=== PATIENT | male | born 1950 | race Caucasian/White ===

== ENCOUNTER 2016-07-25 22:00 | Inpatient (IN) | payer MEDICAID ==
[2016-07-25] MEDS ORDERED: Magnesium Hydroxide (MOM) 30 mL UDC PO PRN (22:53)
[2016-07-25] MEDS ORDERED: Maalox 30 mL Cup PO PRN (22:53)
[2016-07-25] MEDS ORDERED: Hydrocodone/APAP 5mg/325mg Tab PO PRN (22:53)
[2016-07-25 23:05] VITALS: BP 145/77
[2016-07-25] MEDS ORDERED: Dextrose 5% 1,000 ML IV SCH (23:15)
[2016-07-25 23:30] LABS: % BASOPHILS 0.8 % (0.0-2.0); % EOSINOPHILS 1.8 % (0.0-5.0); % LYMPHOCYTES 27.4 % (20.0-50.0); % MONOCYTES 6.3 % (2.0-10.0); % NEUTROPHILS 63.7 % (40.0-80.0); HEMATOCRIT 34.8 % (39.0-49.0); MEAN CELL VOLUME 81.2 fl (80-99); MEAN CORPUSCULAR HEMOGLOBIN 27.9 pg (26.0-30.0); MEAN CORPUSCULAR HGB CONC 34.3 pg (28.0-36.0); MEAN PLATELET VOLUME 8.9 fl; NEUTROPHILE ABSOLUTE 6.1 Th/cmm (1.8-8.0); PLATELET COUNT 205 Th/cmm (150-400); RED BLOOD COUNT 4.29 Mil/cmm (4.30-5.70); WHITE BLOOD COUNT 9.6 Th/cmm (4.8-10.8)
[2016-07-25 23:53] LABS: ALB/GLOB RATIO 0.8 (1.0-1.8); ANION GAP 11.2 (7.0-16.0); BILIRUBIN,TOTAL 0.4 mg/dL (0.3-1.0); BUN/CREATININE RATIO 16.4; CALCIUM SERUM 8.6 mg/dL (8.6-10.3); CARBON DIOXIDE 25.5 mEq/L (21.0-31.0); CREATININE - SERUM 2.2 mg/dL (0.7-1.3); POTASSIUM SERUM 3.7 mEq/L (3.5-5.1)
[2016-07-26] MEDS: Hydrocodone/APAP 10 mg/325 mg Tab PO PRN ×3 (04:14→23:33)
[2016-07-26 06:10] LABS: % BASOPHILS 0.9 % (0.0-2.0); % EOSINOPHILS 2.1 % (0.0-5.0); % MONOCYTES 7.5 % (2.0-10.0); % NEUTROPHILS 57.5 % (40.0-80.0); HEMATOCRIT 35.7 % (39.0-49.0); HEMOGLOBIN 11.8 gm/dL (13.2-17.3); MEAN CELL VOLUME 83.5 fl (80-99); MEAN CORPUSCULAR HEMOGLOBIN 27.6 pg (26.0-30.0); PLATELET COUNT 213 Th/cmm (150-400); RED BLOOD COUNT 4.27 Mil/cmm (4.30-5.70); RED CELL DISTRIBUTION WIDTH 13.1 % (11.5-20.0); WHITE BLOOD COUNT 8.8 Th/cmm (4.8-10.8)
[2016-07-26 06:44] LABS: BUN/CREATININE RATIO 16.7; CALCIUM SERUM 8.6 mg/dL (8.6-10.3); CARBON DIOXIDE 23.7 mEq/L (21.0-31.0); CREATININE - SERUM 2.1 mg/dL (0.7-1.3); MAGNESIUM 1.6 mg/dL (1.9-2.7); PHOSPHOROUS 3.4 mg/dL (2.5-5.0); POTASSIUM SERUM 3.7 mEq/L (3.5-5.1)
--- NOTE | 2016-07-26 11:25 | Diagnostic Imaging Report ---
Renal ultrasound HISTORY: Abnormal renal function tests The right kidney measures 10.3 x 5.3 x 4.0 cm. Mild fullness of the right renal pelvis without lynsey hydronephrosis. No focal parenchymal lesions. The left kidney is normal in size (10.4 x 5.1 x 5.2 cm). No focal lesions. No hydronephrosis. The exam of the urinary bladder exhibits a normal contour. No intraluminal abnormalities are seen. There is excess post void residual (148.4 mL). Mild prostate enlargement (4.6 x 4.2 x 5.0 cm). IMPRESSION: 1. Essentially negative exam of the kidneys 2. Excess post void urine residual within the urinary bladder 3. Mild prostate enlargement
--- NOTE | 2016-07-26 15:29 | History & Physical ---
CHIEF COMPLAINT: Weakness. HISTORY OF PRESENT ILLNESS: The patient is a 66-year-old male who has been transferred from [facility] ER. The patient presented to the [facility] ER with weakness, which has been gradual in nature for 1 week. The patient has a history of frequent falls and vomiting. The patient complains of weakness and vomiting, weakness in his legs. The patient denies fever, chest pain. Positive nausea, vomiting, and diarrhea. The patient was previously seen at [facility] last week. PAST MEDICAL HISTORY: Hypertension, diabetes. SOCIAL HISTORY: No reports smoking, drinking, or drug use. ALLERGIES: No known allergies. MEDICATIONS: See medication reconciliation form. REVIEW OF SYSTEMS: See history of present illness. PHYSICAL EXAMINATION: GENERAL: The patient is awake, alert, nontoxic in appearance. VITAL SIGNS: On admission, temperature 98.1, pulse 95, blood pressure per nursing, respiratory rate 20, O2 saturation 98% on room air. HEENT: Normocephalic, atraumatic. Extraocular movements are intact. Oropharynx is clear. NECK: Supple. No thyromegaly. No lymphadenopathy. RESPIRATORY: Clear. No wheeze or rhonchi. CARDIOVASCULAR: S1, S2. No murmurs or gallops. GASTROINTESTINAL: Soft and nontender, bowel sounds present. GENITOURINARY: No CVA tenderness. No suprapubic tenderness. BACK: No midline tenderness. EXTREMITIES: Equal pulses bilaterally. No c/c/e. SKIN: Negative. PSYCHIATRIC: Negative. NEUROLOGIC: Cranial nerves 2-12 intact. Sensory intact. Neurovascular intact. Lower extremity within normal limits. LABORATORY DATA: On admission as follows: Hematology, WBC 9.6, hemoglobin 12.0, hematocrit per labs, platelet count of 205, no left shift noted. Chemistry: Sodium 132, potassium 3.7, chloride 99, bicarbonate 25, anion gap 11, BUN 36, creatinine 2.2, glucose is 237, calcium 8.6, total bilirubin 0.4, AST 16, ALT 12, alkaline phosphatase 62. Creatinine kinase 152. Troponin is 0.05. Total protein 6.8, albumin 3.1, globulin 3.7. RADIOLOGY: Renal ultrasound from July 26 shows urinary bladder, mild prostate enlargement. X-rays done at [facility], lumbar x-ray shows no changes. Chest x-ray, no acute abnormality. IMPRESSION: 1. Acute kidney injury. 2. Diabetes mellitus. 3. Hypertension. 4. Weakness. 5. Abdominal pain. 6. Nausea and vomiting. 7. Diarrhea. 8. Elevated troponin levels. PLAN: The patient admitted to telemetry unit and seen by Dr. Rolf De Leon. Obtain labs. Consultation as needed. JOB# [id number] MTDD
[2016-07-26] MEDS: INSULIN ASPART SLIDING SCALE 100 UNITS/ML UNIT SUBQ SCH ×2 (16:39→21:12)
[2016-07-26] MEDS: Sodium Chloride 0.9% 1,000 ML IV SCH (17:30)
[2016-07-26] MEDS ORDERED: Mag Sulfate 2gm/50mL Premix 2 GM/50 ML BAG IV ONE (17:45)
--- NOTE | 2016-07-26 19:43 | Consultation ---
INPATIENT NEPHROLOGY CONSULTATION REASON FOR CONSULTATION: Renal insufficiency. 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 On examination, the patient denies complaints, states that he does have blood pressure problems, but no family history or previous history of kidney problems. REVIEW OF SYSTEMS: Denies fevers, chills, nausea, vomiting, chest pain, shortness of breath, abdominal pain. Otherwise, 14-point review is negative except as noted above. PAST MEDICAL HISTORY: Diabetes mellitus, poorly controlled; hypertension. PAST SURGICAL HISTORY: None. FAMILY HISTORY: The patient endorses history of diabetes in the family as well, but no relatives are on dialysis. SOCIAL HISTORY: No smoking, alcohol or drug use currently; however, past history of smoking is endorsed. MEDICATIONS: Include hydrocodone, Tylenol, insulin aspart, magnesium hydroxide. PHYSICAL EXAMINATION: VITAL SIGNS: Temperature 36, blood pressure 140/82, pulse 93, respirations 18. GENERAL APPEARANCE: Well-developed, well-nourished man in no apparent distress, alert and oriented x3. LUNGS: Clear to auscultation bilaterally. CARDIAC: Regular rate, normal rhythm. No murmurs or gallops. EXTREMITIES: Trace edema, 1+ pulses distally. Some venous stasis ulcers seen on lower extremities and shins bilaterally. DIAGNOSTIC DATA: Laboratories were reviewed. The patient appears to have 1+ proteinuria, 1.009 specific gravity, pH 6, no ketones, 3+ glucose, negative urobilinogen, negative bilirubin, negative UA. Hemoglobin, 0-2 wbc's, 0-3 rbc's, no bacteria seen on urinalysis performed at [facility] on 07/25/2016. Additionally, his creatinine at that time was 2.5. Microscopic examination of the sediment was unremarkable. Of note, in January 2016, he had a similar urinalysis done and creatinine at that time was 1.3. Laboratories here as of 07/26/2016 at 4:00 a.m., sodium 132, K 3.7, chloride 101, CO2 23, BUN 35, creatinine 2.1. CBC: White count 8.8, hemoglobin 11.8, platelets 213, calcium 8.6, phos 3.5, mag 1.6, point of care glucose is 401. ASSESSMENT AND RECOMMENDATIONS: 1. Chronic kidney disease secondary to diabetic nephropathy. There may be an underlying component of acute kidney injury secondary to volume depletion. We would recommend continuing IV fluids at this time. The patient's serum creatinine appears to be progressive in nature and we will quantify microalbumin as well as total protein in the urine. Given that the patient has evidence of anemia as well, underlying deposition disease may be another possibility. So far, sediment appears to be unremarkable, do not suspect a primary glomerulonephritis or renal disorder at this time. Renal ultrasound will be obtained to rule out obstruction and evaluate baseline structural status of the kidneys. 2. Anemia secondary to chronic disease. We will follow up on iron panel. 3. Diabetes mellitus with renal manifestations, stable. Continue insulin Accu-Cheks at this time. Likely, the patient needs aggressive insulin control given A1c is 14.8. 3. Hypertension. Blood pressure appears to be reasonably controlled at this time. Given chronic kidney disease, goal systolic should be less than 130. At this time, due to acute kidney injury, hold off angiotensin-converting enzyme inhibitor, however, reasonable to start calcium channel gualberto. We will start nifedipine 30 mg daily at this time. 3. History of generalized weakness, chest pain. Cardiology evaluation is in process. Thank you, Dr. De Leon, for allowing us to follow in the care of this patient. We will continue to follow along with you while hospitalized. JOB# [id number] BIGG
[2016-07-26] MEDS ORDERED: Dextrose 50% 50 mL Abboject IVP ONE ×2 (20:41→20:51)
[2016-07-26] MEDS ORDERED: INSULIN 70/30 100 UNITS/ML SUBQ SCH (21:00)
[2016-07-26] MEDS: Atorvastatin Calcium 10 MG TAB PO SCH (21:23)
[2016-07-27 01:34] LABS: URINE BILIRUBIN NEGATIVE (NEGATIVE); URINE BLOOD TRACE (NEGATIVE); URINE COLOR STRAW; URINE GLUCOSE (UA) 500 mg/dL (NEGATIVE); URINE KETONE NEGATIVE (NEGATIVE); URINE PH 5.5; URINE PROTEIN NEGATIVE (NEGATIVE); URINE UROBILINOGEN 0.2 E.U./dL (0.2 - 1.0)
[2016-07-27 01:35] LABS: URINE BACTERIA OCCASIONAL /hpf (NONE SEEN); URINE EPITHELIAL CELLS OCCASIONAL /lpf (FEW); URINE RBC 0-2 /hpf (0-5); URINE WBC 0-2 /hpf (0-5)
[2016-07-27] MEDS: INSULIN ASPART SLIDING SCALE 100 UNITS/ML UNIT SUBQ SCH ×4 (06:47→20:18)
[2016-07-27] MEDS: INSULIN 70/30 100 UNITS/ML SUBQ SCH ×2 (06:47→17:05)
[2016-07-27 06:56] LABS: ALB/GLOB RATIO 0.9 (1.0-1.8); ANION GAP 6.5 (7.0-16.0); BILIRUBIN,TOTAL 0.4 mg/dL (0.3-1.0); BUN/CREATININE RATIO 15.3; CALCIUM SERUM 8.7 mg/dL (8.6-10.3); CARBON DIOXIDE 27.4 mEq/L (21.0-31.0); CREATININE - SERUM 1.7 mg/dL (0.7-1.3); POTASSIUM SERUM 3.9 mEq/L (3.5-5.1); URIC ACID 5.8 mg/dL (4.4-7.6)
[2016-07-27 07:00] LABS: NEUTROPHILE ABSOLUTE 6.8 Th/cmm (1.8-8.0)
[2016-07-27 07:10] LABS: HEMOGLOBIN 11.7 gm/dL (13.2-17.3); MEAN CELL VOLUME 82.6 fl (80-99); RED BLOOD COUNT 4.24 Mil/cmm (4.30-5.70); WHITE BLOOD COUNT 10.6 Th/cmm (4.8-10.8)
[2016-07-27 07:11] LABS: % BASOPHILS 0.6 % (0.0-2.0); % EOSINOPHILS 1.4 % (0.0-5.0); % MONOCYTES 6.5 % (2.0-10.0); % NEUTROPHILS 64.5 % (40.0-80.0); MEAN CORPUSCULAR HEMOGLOBIN 27.7 pg (26.0-30.0); MEAN CORPUSCULAR HGB CONC 33.5 pg (28.0-36.0); MEAN PLATELET VOLUME 8.9 fl; PLATELET COUNT 209 Th/cmm (150-400); RED CELL DISTRIBUTION WIDTH 12.6 % (11.5-20.0)
[2016-07-27] MEDS ORDERED: INSULIN 70/30 100 UNITS/ML SUBQ SCH (07:30)
[2016-07-27] MEDS: Atorvastatin Calcium 10 MG TAB PO SCH (08:47)
--- NOTE | 2016-07-27 13:37 | General Progress Note ---
Subjective - Review of Systems Service Date: 07/27/16 Subjective: Denies c/o, no chest pain or shortness of breath on exam this afternoon. Urinating normally. Objective - Results Result Diagrams: 07/27/16 06:00 07/27/16 06:00 Recent Labs: Laboratory Last Values WBC 10.6 Th/cmm (4.8-10.8) D 07/27/16 06:00 RBC 4.24 Mil/cmm (4.30-5.70) L 07/27/16 06:00 Hgb 11.7 gm/dL (13.2-17.3) L 07/27/16 06:00 Hct 35.0 % (39.0-49.0) L 07/27/16 06:00 MCV 82.6 fl (80-99) 07/27/16 06:00 MCH 27.7 pg (26.0-30.0) 07/27/16 06:00 MCHC Differential 33.5 pg (28.0-36.0) 07/27/16 06:00 RDW 12.6 % (11.5-20.0) 07/27/16 06:00 Plt Count 209 Th/cmm (150-400) 07/27/16 06:00 MPV 8.9 fl 07/27/16 06:00 Neutrophils % 64.5 % (40.0-80.0) 07/27/16 06:00 Lymphocytes % 27.0 % (20.0-50.0) 07/27/16 06:00 Monocytes % 6.5 % (2.0-10.0) 07/27/16 06:00 Eosinophils % 1.4 % (0.0-5.0) 07/27/16 06:00 Basophils % 0.6 % (0.0-2.0) 07/27/16 06:00 Sodium 132 mEq/L (136-145) L 07/27/16 06:00 Potassium 3.9 mEq/L (3.5-5.1) 07/27/16 06:00 Chloride 102 mEq/L (98-107) 07/27/16 06:00 Carbon Dioxide 27.4 mEq/L (21.0-31.0) 07/27/16 06:00 Anion Gap 6.5 (7.0-16.0) L 03/10/17 06:00 BUN 26 mg/dL (7-25) H 07/27/16 06:00 Creatinine 1.7 mg/dL (0.7-1.3) H 07/27/16 06:00 Est GFR ( Amer) 52.4 ml/min (>90) 07/27/16 06:00 Est GFR (Non-Af Amer) 43.3 ml/min 07/27/16 06:00 BUN/Creatinine Ratio 15.3 07/27/16 06:00 Glucose 155 mg/dL (70-105) H 07/27/16 06:00 POC Glucose 175 MG/DL (70 - 105) H 07/27/16 11:36 Hemoglobin A1c % 14.8 % (4.0-6.0) H 07/26/16 05:25 Uric Acid 5.8 mg/dL (4.4-7.6) 07/27/16 06:00 Calcium 8.7 mg/dL (8.6-10.3) 07/27/16 06:00 Phosphorus 3.0 mg/dL (2.5-5.0) 07/27/16 06:00 Magnesium 2.0 mg/dL (1.9-2.7) 07/27/16 06:00 Total Bilirubin 0.4 mg/dL (0.3-1.0) 07/27/16 06:00 AST 17 U/L (13-39) 07/27/16 06:00 ALT 11 U/L (7-52) 07/27/16 06:00 Alkaline Phosphatase 53 U/L (34-104) 07/27/16 06:00 Creatine Kinase 152 U/L (30-223) 07/25/16 23:20 Troponin I 0.05 ng/mL (0.01-0.05) 07/25/16 23:20 Total Protein 6.5 gm/dL (6.0-8.3) 07/27/16 06:00 Albumin 3.0 gm/dL (4.2-5.5) L 07/27/16 06:00 Globulin 3.5 gm/dL 07/27/16 06:00 Albumin/Globulin Ratio 0.9 (1.0-1.8) L 07/27/16 06:00 Triglycerides 92 mg/dL (<150) 07/27/16 06:00 Cholesterol 105 mg/dL (<200) 07/27/16 06:00 LDL Cholesterol Direct 52 mg/dL (75-193) L 07/27/16 06:00 HDL Cholesterol 43 mg/dL (23-92) 07/27/16 06:00 Amylase 59 U/L (29-103) 07/27/16 06:00 Lipase 16 U/L (11-82) 07/27/16 06:00 Urine Source CLEAN C 07/26/16 23:20 Urine Color STRAW 07/26/16 23:20 Urine Clarity CLEAR (CLEAR) 07/26/16 23:20 Urine pH 5.5 07/26/16 23:20 Ur Specific Eckerman 1.68404 (1.005-1.030) L 07/26/16 23:20 Urine Protein NEGATIVE mg/dL (NEGATIVE) 07/26/16 23:20 Urine Glucose (UA) 500 mg/dL (NEGATIVE) H 07/26/16 23:20 Urine Ketones NEGATIVE mg/dL (NEGATIVE) 07/26/16 23:20 Urine Blood TRACE (NEGATIVE) 07/26/16 23:20 Urine Nitrate NEGATIVE (NEGATIVE) 07/26/16 23:20 Urine Bilirubin NEGATIVE (NEGATIVE) 07/26/16 23:20 Urine Urobilinogen 0.2 E.U./dL (0.2 - 1.0) 07/26/16 23:20 Ur Leukocyte Esterase NEGATIVE (NEGATIVE) 07/26/16 23:20 Urine RBC 0-2 /hpf (0-5) H 07/26/16 23:20 Urine WBC 0-2 /hpf (0-5) 07/26/16 23:20 Ur Epithelial Cells OCCASIONAL /lpf (FEW) 07/26/16 23:20 Urine Bacteria OCCASIONAL /hpf (NONE SEEN) 07/26/16 23:20 U Random Total Protein 17.0 mg/dL 07/26/16 23:20 Ur Random Sodium 34 mmol/L 07/26/16 23:20 Urine Creatinine 29.0 mg/dl (39.0-259.0) L 07/26/16 23:20 - Physical Exam Vitals and I&O: Vital Signs Temp 97.5 F 07/27/16 12:00 Pulse 77 07/27/16 12:00 Resp 17 07/27/16 12:00 BP 128/66 07/27/16 12:00 Pulse Ox 100 07/27/16 04:00 Intake & Output 07/26/16 07/27/16 07/27/16 18:59 06:59 18:59 Intake Total 800 700 150 Output Total 0 800 Balance 800 -100 150 Intake: Oral 800 700 150 Output: Urine 800 Stool 0 0 Other: # Voids 3 2 Active Medications: Current Medications Acetaminophen (Tylenol) 650 mg PO Q6H PRN PRN Reason: Mild Pain/Headache/T above 101 Stop: 09/23/16 22:52 Acetaminophen/Hydrocodone Bitart (Peebles 10 Mg/325 Mg) 1 tab PO Q6H PRN PRN Reason: Pain (Severe) Stop: 09/23/16 22:52 Last Admin: 07/26/16 23:33 Dose: 1 tab Acetaminophen/Hydrocodone Bitart (Peebles 5mg/325mg) 1 tab PO Q6H PRN PRN Reason: Moderate Pain Stop: 09/23/16 22:52 Al Hydrox/Mg Hydrox/Simethicone (Maalox) 30 ml PO Q6H PRN PRN Reason: Constipation Stop: 09/23/16 22:52 Atorvastatin Calcium (Lipitor) 20 mg PO DAILY ROSALBA PRN Reason: Protocol Stop: 09/24/16 20:59 Last Admin: 07/27/16 08:47 Dose: 20 mg Gabapentin (Neurontin) 300 mg PO TID [facility] Stop: 09/25/16 08:59 Last Admin: 07/27/16 08:49 Dose: 300 mg Sodium Chloride (Nacl 0.9%) 1,000 mls @ 50 mls/hr IV .Q20H [facility] Stop: 09/24/16 16:59 Last Admin: 07/26/16 17:30 Dose: 50 mls/hr Insulin Aspart (Novolog Insulin Sliding Scale) 0 units SUBQ ACHS ROSALBA PRN Reason: Protocol Stop: 09/24/16 16:29 Last Admin: 07/27/16 13:25 Dose: 2 units Insulin Human Isoph/Insulin Regular (Novolin 70/30) 8 units SUBQ HS ROSALBA PRN Reason: Protocol Stop: 09/24/16 20:59 Last Admin: 07/26/16 21:11 Dose: Not Given Insulin Human Isoph/Insulin Regular (Novolin 70/30) 15 units SUBQ QDAC ROSALBA PRN Reason: Protocol Stop: 09/25/16 07:29 Last Admin: 07/27/16 06:47 Dose: 15 units Lisinopril (Zestril) 10 mg PO DAILY [facility] Stop: 09/24/16 16:59 Last Admin: 07/27/16 08:50 Dose: 10 mg Lorazepam (Ativan) 1 mg PO Q6H PRN; Protocol PRN Reason: Anxiety/Agitation Stop: 09/23/16 22:52 Magnesium Hydroxide (Milk Of Magnesia) 30 ml PO HS PRN PRN Reason: Constipation Stop: 09/23/16 22:52 Metoprolol Tartrate (Lopressor) 25 mg PO BID [facility] Stop: 09/24/16 16:59 Last Admin: 07/27/16 08:50 Dose: 25 mg Ondansetron HCl (Zofran) 4 mg IV Q6H PRN PRN Reason: Nausea / Vomiting Stop: 09/24/16 19:34 General: Alert, Oriented x3 HEENT: Atraumatic Neck: Supple Cardiovascular: Regular rate, Normal S1 Lungs: Clear to auscultation Extremities: no Clubbing, no Cyanosis, no Edema, no Pulses, no Tender, no Other Assessment/Plan - Assessment Assessment: [place] on CKD, better, acute component likely volume depletion which has resolved Cr is back to previously documented baseline as of 01/2016 Blood sugars much better controlled Will need followup with renal as an outpatient basis
[2016-07-27] MEDS: Hydrocodone/APAP 10 mg/325 mg Tab PO PRN (14:39)
--- NOTE | 2016-07-27 15:43 | Diagnostic Imaging Report ---
Bilateral lower extremity Doppler arterial ultrasound exam HISTORY: Peripheral vascular disease, pain Sonographic sector images were obtained through the arterial systems of both legs. Associated Doppler data was obtained. The exam of the right leg demonstrates biphasic waveforms within the common femoral, superficial femoral, popliteal arteries. Monophasic waveforms are noted within the right anterior tibial, posterior tibial, dorsalis pedis arteries. Elevated velocity noted in the anterior tibial artery region. Slight increase in velocity also noted within the distal portion of the right superficial femoral artery. Mild diffuse atherosclerotic changes are noted through the arterial system. The right ankle-brachial index is normal (0.9). The exam of the left leg demonstrates biphasic waveforms within the common femoral, superficial femoral, popliteal, anterior tibial, posterior tibial arteries. Monophasic waveforms are seen within the left dorsalis pedis artery region. Increase in velocity noted within the left posterior tibial artery. No abnormal decrease in velocity is seen within the left dorsalis pedis artery. Evidence of mild to moderate diffuse atherosclerotic plaque seen throughout the arterial system. The ankle-brachial index is normal (1.0). IMPRESSION: 1. Mild to moderate diffuse bilateral atherosclerotic changes. Findings somewhat more pronounced through the region of the left dorsalis pedis artery and below the knee of the right leg.
--- NOTE | 2016-07-27 15:43 | Diagnostic Imaging Report ---
Bilateral lower extremity Doppler venous ultrasound exam HISTORY: Pain/swelling Sonographic sector images were obtained through the deep venous systems of both legs. Associated Doppler data was obtained. The exam demonstrates patency of the common femoral, superficial femoral, popliteal, and posterior tibial veins bilaterally. Specifically, no thrombus is seen. There are normal compressibility and augmentation responses. IMPRESSION: Negative exam for deep vein thrombophlebitis.
--- NOTE | 2016-07-27 15:58 | Consultation ---
HISTORY OF PRESENT ILLNESS: This patient was seen on courtesy of Dr. Rolf De Leon as the patient is coming with hypertension and history of syncopal episodes. The patient says that he started having weakness, which is generalized mostly in the both lower extremities and he was passing out and falling down. It got worse over last 1 week to the point that he came to the [facility] where he was worked up and then was transferred here for further management. He denies of any fevers, chills and rigors. No nausea and vomiting. No chest pain. He also says that he was seen at [facility] last week and everything was normal, so he was discharged home. With the syncopal episodes, he says the episodes come without any warning. No preceding symptoms. He just passes out and has fallen down several times in the past. After recovery, he has fully recovered. No muscular weakness in any part of the body or so or any other post episode symptoms. PAST HISTORY: History of hypertension and diabetes mellitus type 2. PERSONAL HISTORY: Now he is nonsmoker, nonalcoholic and no drug abuse. He used to drink heavy in the past and almost everyday about 20-25 cans of beer everyday and when he was feeling drunk or unable to mobilize, then he used to go in the car and sleep in the car. He is retired now. ALLERGIES: No known drug allergies. MEDICATIONS: Refer to the chart. Meds are reviewed. PHYSICAL EXAMINATION: GENERAL: The patient is a 66-year-old male who is fully alert and oriented, not in acute distress. VITAL SIGNS: Blood pressure is elevated to 160+ range. Heart rate is in the 70s. Temperature normal. Respiration is 18. O2 saturation on room air is 98%. HEENT: Normal. NECK: Supple. JVP is flat. No lymphadenopathy. Thyroid nonpalpable. Carotids are equally palpable bilaterally. No bruits. Trachea is central. CHEST: Equal and bilateral. No chest wall tenderness. LUNGS: Clinically clear. CARDIOVASCULAR SYSTEM: PMI nonpalpable and heart sounds are normal. There is soft S1 is best audible towards apex. No rub. No murmurs appreciated. ABDOMEN: Upper abdomen is normal. [employer]: Grossly normal. EXTREMITIES: No edema. No cyanosis. No clubbing. Peripheral pulsations are equal bilaterally. LABORATORY WORK: Evaluated. Chem 12 is normal. Blood glucose is elevated in 200-400. Calcium is normal. Troponin is 0.05. CPK is 152. Chest x-ray: No CHF or active cardiopulmonary disorder. IMPRESSION: Hypertension, uncontrolled, essential but rule out any other secondary etiology. Diabetes mellitus type 2, history of alcohol abuse, sober over 10 years now, hypertensive heart disease most likely diastolic heart failure. Abnormal labs and slightly elevated troponin. We will evaluate for any other underlying acute coronary syndrome. Syncope in the past, etiology undermined. Evaluate for cardiac dysrhythmia or coronary artery disease to be evaluated further. PLAN: I agree with further management with the serial CPK and troponin and also advised to 2D echocardiogram to evaluate for any valvular or structural disorder and also to elevate LV function and possibility of cardiomyopathy is there. Control hypertension. Correct electrolytes and further workup and management as needed. JOB# [id number] BIGG
[2016-07-28 05:59] LABS: % BASOPHILS 0.7 % (0.0-2.0); % EOSINOPHILS 2.3 % (0.0-5.0); % LYMPHOCYTES 21.1 % (20.0-50.0); % MONOCYTES 4.8 % (2.0-10.0); % NEUTROPHILS 71.1 % (40.0-80.0); HEMATOCRIT 34.8 % (39.0-49.0); HEMOGLOBIN 11.8 gm/dL (13.2-17.3); MEAN CELL VOLUME 81.7 fl (80-99); MEAN CORPUSCULAR HEMOGLOBIN 27.7 pg (26.0-30.0); MEAN CORPUSCULAR HGB CONC 33.9 pg (28.0-36.0); MEAN PLATELET VOLUME 8.9 fl; NEUTROPHILE ABSOLUTE 10.3 Th/cmm (1.8-8.0); PLATELET COUNT 207 Th/cmm (150-400); RED BLOOD COUNT 4.26 Mil/cmm (4.30-5.70); RED CELL DISTRIBUTION WIDTH 13.3 % (11.5-20.0)
[2016-07-28 06:37] LABS: WHITE BLOOD COUNT 14.5 Th/cmm (4.8-10.8)
[2016-07-28 06:38] LABS: ANION GAP 7.9 (7.0-16.0); BUN/CREATININE RATIO 17.1; CARBON DIOXIDE 28.8 mEq/L (21.0-31.0); CREATININE - SERUM 1.7 mg/dL (0.7-1.3); MAGNESIUM 1.9 mg/dL (1.9-2.7); PHOSPHOROUS 2.9 mg/dL (2.5-5.0); POTASSIUM SERUM 4.7 mEq/L (3.5-5.1)
[2016-07-28] MEDS: INSULIN ASPART SLIDING SCALE 100 UNITS/ML UNIT SUBQ SCH ×4 (06:44→21:36)
--- NOTE | 2016-07-28 07:25 | Progress Notes ---
SUBJECTIVE: The patient is awake, alert. The patient is on IV fluids. The patient is receiving inpatient rehab therapy. OBJECTIVE: VITAL SIGNS: Temperature 97.5, pulse 88, blood pressure 122/65, respiratory rate 17. CARDIOVASCULAR: S1 and S2. RESPIRATORY: Clear. GASTROINTESTINAL: Soft. Positive bowel sounds. LABORATORY DATA: Hematology: WBC 10.6, hemoglobin 11.7, hematocrit 34.0, platelet count 209, no left shift noted. Chemistry: Sodium 132, potassium 3.9, chloride 102, bicarbonate 27, anion gap 6.5, BUN 26, creatinine 1.7. GFR is 43.3. Glucose is 155. Uric acid 5.8, calcium 8.7, phos 3.0, mag is 2.0. Total bilirubin 0.4, AST 17, ALT 11, alkaline phosphatase per labs. Total protein 6.5 , albumin 3.0, globulin 3.5, triglyceride 92. Cholesterol is 105, LDL 52, HDL 43, amylase 59, lipase 16. MICROBIOLOGY: MRSA screen from 07/25/2016 is negative. RADIOLOGY: Bilateral lower extremity arterial ultrasound shows [id number] diffuse bilateral atherosclerotic changes, findings consistent with a more pronounced through the region of left dorsalis pedis artery and below the knee of the right leg. Bilateral lower extremity venous ultrasound is negative for DVT. ASSESSMENT: 1. Anemia. 2. Hyponatremia. 3. Acute kidney injury. 4. Chronic kidney disease. 5. Hyperglycemia. 6. Hypoalbuminemia. 7. Bilateral lower extremity peripheral vascular disease. 8. Hypertension. 9. Debility. 10. Generalized weakness. 11. Abdominal pain. 12. Nausea and vomiting. 13. Elevated troponin levels. PLAN: Continue current medication and treatment. Obtain labs in a.m. Continue inpatient rehab therapy. Further recommendations per consults. JOB# [id number] BIGG
[2016-07-28] MEDS: INSULIN 70/30 100 UNITS/ML SUBQ SCH ×2 (08:38→16:05)
[2016-07-28] MEDS: Atorvastatin Calcium 10 MG TAB PO SCH (08:39)
[2016-07-28] MEDS: Hydrocodone/APAP 10 mg/325 mg Tab PO PRN ×2 (08:40→16:07)
--- NOTE | 2016-07-28 09:20 | Diagnostic Imaging Report ---
Portable chest x-ray History: Shortness of breath, fever Allowing for portable technique the heart size is normal. No focal pulmonary parenchymal processes. No hilar or mediastinal abnormalities. Impression: No acute abnormalities.
[2016-07-28] MEDS: Sodium Chloride 0.9% 1,000 ML IV SCH (10:00)
[2016-07-28 16:09] LABS: % BASOPHILS 0.5 % (0.0-2.0); % EOSINOPHILS 2.2 % (0.0-5.0); % LYMPHOCYTES 24.9 % (20.0-50.0); % MONOCYTES 6.2 % (2.0-10.0); % NEUTROPHILS 66.2 % (40.0-80.0); HEMATOCRIT 33.8 % (39.0-49.0); HEMOGLOBIN 11.2 gm/dL (13.2-17.3); MEAN CELL VOLUME 82.7 fl (80-99); MEAN CORPUSCULAR HEMOGLOBIN 27.3 pg (26.0-30.0); MEAN PLATELET VOLUME 8.5 fl; PLATELET COUNT 201 Th/cmm (150-400); RED BLOOD COUNT 4.09 Mil/cmm (4.30-5.70); RED CELL DISTRIBUTION WIDTH 12.7 % (11.5-20.0); WHITE BLOOD COUNT 10.6 Th/cmm (4.8-10.8)
--- NOTE | 2016-07-29 04:34 | Progress Notes ---
SUBJECTIVE: The patient is awake and alert. The patient is on IV fluids. The patient is receiving inpatient abx therapy. OBJECTIVE: VITAL SIGNS: Temperature 98.5, pulse 78, blood pressure per nursing, respiratory rate 19, O2 saturation 96% on room air. CARDIOVASCULAR: S1 and S2. RESPIRATORY: Clear. GASTROINTESTINAL: Soft. Positive bowel sounds. LABORATORY DATA: CBC: WBC 14.5, hemoglobin 11.8, hematocrit per labs, platelet count of 207. Chemistry: Sodium 134, potassium per labs, chloride 102, bicarbonate 28, anion gap 7.9, BUN 29, creatinine 1.7. GFR is 43. Glucose 125, calcium 9.0, phosphorus 2.9, magnesium is 1.9. RADIOLOGY: Chest x-ray showed no acute abnormalities. ASSESSMENT: 1. Leukocytosis. 2. Anemia. 3. Hyponatremia. 4. Acute kidney injury. 5. Hyperglycemia. 6. Bilateral lower extremity peripheral vascular disease. 7. Hypertension. 8. Debility. 9. Generalized weakness. 10. Abdominal pain (resolved). 11. Nausea and vomiting (resolved). 12. Elevated troponin levels. PLAN: Continue current medications and treatment. Obtain labs in a.m. Inpatient rehab therapy. Further consults. We will obtain Infectious Disease consultation regarding the patient's leukocytosis. [facility]# [id number] BIGG
--- NOTE | 2016-07-29 05:14 | Admit Criteria Form ---
Admit Criteria Forms - Admit Criteria Diagnosis: RENAL FAILURE, ACUTE Clinical Indications for Admission to Inpatient Care ( Place 'X' for any and all applicable criteria): Admission is indicated for ALL (if I & II) or III of the following [A](2)(3)(4)( 5)(6)(7): [ ]I. Acute renal failure as indicated by ANY ONE of the following: [ ]a) A 3-fold rise in serum creatinine from baseline [ ]b) Serum creatinine greater than 4 mg/dL (354 micromoles/L) with an acute rise greater than 0.5 mg/dL (44.2 micromoles/L) [ ]c) Reduction of more than 75% in estimated glomerular filtration rate from baseline [ ]d) Estimated glomerular filtration rate less than 35 mL/min/1.73m2 (0.59mL/sec/1.73m2)in a child up to 18 years of age [ ]e) Anuria indicated by ALL of the following: [ ]i) Adequate volume status [ ]ii) Cessation of urine output indicated by ANY ONE of the following: [ ]1) Urine output less than 0.3 mL/kg/hr for 24 hours [ ]2) Anuria (urine output less than 0.1 mL/kg/ hr) for 12 hours [ ] II. Renal failure cannot be managed in an outpatient setting or observational care setting as indicating by ANY ONE of the following: [ ]a) Altered mental status that is severe or persistent [ ]b) Volume overload or Respiratory distress (eg, clinically significant pulmonary edema) that is severe or persistent [ ]c) Cardiac arrhythmias of immediate concern [ ]d) Hemodynamic instability [ ]e) Clinically significant electrolyte abnormality that requires inpatient care (eg, hyperkalemia with severe ECG findings)[B] [ ]f) Clinically significant metabolic abnormality (eg, acidosis) that is severe or persistent [ ]g) Acute treatment of renal failure (eg, renal replacement therapy) not feasible or appropriate in observational care setting [ ]h) Clinical situation too unstable or uncertain (eg, inadequate urine output, ongoing decline in renal function, etiology unclear) [ ]i) Necessary support and caregiver ability to comply with outpatient treatment cannot be arranged in observation care timeframe (eg, within 24 hours) [ ]j) Other significant finding or clinical condition judged not to be within scope of observation care [X]III.General contraindications and/or Inappropriate clinical situations for Observational Care in patients with Acute Renal Failure, when ANY ONE of the following is required: [X]a) Prediction of prolongation of LOS based on ANY ONE of the following may be considered as a contraindication for observational care 2, 3, 4, 5, 6, 7, 8 , 9, 10, 11 [ ]i) Age > 65 yrs. [ ]ii) Patient arriving by ambulance [ ]iii) Patient with high acuity [X]iv) Patient requiring vital sign monitoring [ ]v) Patient on IV medication [ ]b) Systolic blood pressures 180mmHg 3,12 [ ]c) Patient with altered mental status including delirium and other alteration of consciousness, (3) [ ]d) Patient whose discharge disposition will be to a prison home or rehabilitation home should not be managed in Emergency Department Observation Unit. CMS rule requires 3 days hospital stay before such placement.3,13 [ ]e) Patient with failure to thrive due to broad array of etiologies 3, 16,17 [ ]f) Inability to ambulate 3,14 Extended stay beyond goal length of stay may be needed for(13) [ ]a) Continuing uremic complications [ ]b) Care for comorbidities [ ]c) acute renal failure [ ]d) Need for dialysis The original [facility] content created by [email or web address] has been revised. The portions of the content which have been revised are identified through the use of italic text or in bold, and [facility] has neither reviewed nor approved the modified material. All other unmodified content is copyright [facility]. Please see references footnoted in the original [facility] edition 2016 Admit Criteria Met?: Yes
[2016-07-29] MEDS: INSULIN 70/30 100 UNITS/ML SUBQ SCH ×2 (06:41→17:07)
[2016-07-29] MEDS: INSULIN ASPART SLIDING SCALE 100 UNITS/ML UNIT SUBQ SCH ×4 (08:24→21:25)
[2016-07-29] MEDS: Hydrocodone/APAP 10 mg/325 mg Tab PO PRN ×2 (09:41→18:38)
[2016-07-29] MEDS: Atorvastatin Calcium 10 MG TAB PO SCH (09:42)
[2016-07-29 14:46] LABS: % BASOPHILS 0.9 % (0.0-2.0); % EOSINOPHILS 2.7 % (0.0-5.0); % LYMPHOCYTES 27.5 % (20.0-50.0); % MONOCYTES 6.7 % (2.0-10.0); % NEUTROPHILS 62.2 % (40.0-80.0); HEMATOCRIT 34.2 % (39.0-49.0); HEMOGLOBIN 11.2 gm/dL (13.2-17.3); MEAN CELL VOLUME 83.6 fl (80-99); MEAN CORPUSCULAR HEMOGLOBIN 27.4 pg (26.0-30.0); MEAN CORPUSCULAR HGB CONC 32.8 pg (28.0-36.0); MEAN PLATELET VOLUME 8.5 fl; NEUTROPHILE ABSOLUTE 5.1 Th/cmm (1.8-8.0); PLATELET COUNT 201 Th/cmm (150-400); RED BLOOD COUNT 4.08 Mil/cmm (4.30-5.70); RED CELL DISTRIBUTION WIDTH 12.7 % (11.5-20.0)
[2016-07-29 14:55] LABS: WHITE BLOOD COUNT 8.1 Th/cmm (4.8-10.8)
[2016-07-29 15:01] LABS: ANION GAP 9.3 (7.0-16.0); BUN/CREATININE RATIO 15.9; CALCIUM SERUM 8.7 mg/dL (8.6-10.3); CARBON DIOXIDE 29.2 mEq/L (21.0-31.0); CREATININE - SERUM 1.7 mg/dL (0.7-1.3); MAGNESIUM 1.8 mg/dL (1.9-2.7); PHOSPHOROUS 3.7 mg/dL (2.5-5.0); POTASSIUM SERUM 4.5 mEq/L (3.5-5.1)
--- NOTE | 2016-07-29 22:27 | Progress Notes ---
SUBJECTIVE: The patient is awake, alert. The patient is receiving inpatient rehab therapy. OBJECTIVE: VITAL SIGNS: Temperature per nursing, pulse 71, blood pressure per nursing, respiratory rate 16, O2 sat 99% on room air. CARDIOVASCULAR: S1 and S2. RESPIRATORY: Clear. GASTROINTESTINAL: Soft. Positive bowel sounds. LABORATORY DATA: No labs for today. ASSESSMENT: 1. Acute kidney injury. 2. Diabetes mellitus. 3. Bilateral lower extremity peripheral vascular disease. 4. Hypertension. 5. Debility. 6. Generalized weakness. 7. Abdominal pain, resolved. 8. Nausea and vomiting, resolved. 9. Elevated troponin levels. PLAN: Continue current medications and treatment. Obtain labs in a.m. Continue inpatient rehab therapy. Further consults.. JOB# [id number] BIGG
[2016-07-30] MEDS: Hydrocodone/APAP 10 mg/325 mg Tab PO PRN ×2 (00:24→08:16)
[2016-07-30] MEDS: INSULIN ASPART SLIDING SCALE 100 UNITS/ML UNIT SUBQ SCH ×2 (07:00→11:45)
[2016-07-30] MEDS: INSULIN 70/30 100 UNITS/ML SUBQ SCH (08:07)
[2016-07-30] MEDS: Atorvastatin Calcium 10 MG TAB PO SCH (08:08)
[2016-07-30 11:14] LABS: A/G RATIO 0.9 (0.7-1.7); ALBUMIN 2.8 g/dL (2.9-4.4); ALPHA-1-GLOBULIN 0.1 g/dL (0.0-0.4); BETA GLOBULIN 0.8 g/dL (0.7-1.3); GAMMA GLOBULIN 1.6 g/dL (0.4-1.8); GLOBULIN, TOTAL 3.2 g/dL (2.2-3.9); M-SPIKE Not Observed g/dL (Not Observed)
--- NOTE | 2016-07-30 22:21 | Cardiology ---
REFERRING PHYSICIAN: Dr. John De Leon. M-mode measures are technically difficult because of body habitus of the patient. But however, the other Doppler measurements are as follows that the Doppler shows that there is 2+ aortic regurgitation and has a trace of tricuspid regurgitation. Measurements are as follows: Aortic valve Vmax is 1.38 meter per second and aortic valve pressure gradient is 7.6 mmHg. Aortic valve area is 2.18 cm2. Left ventricular outflow tract Vmax is 0.94 meter per second. Right ventricular systolic pressure is 12.8 mmHg. The left ventricular ejection fraction comes to about 60%-65%. M-mode and 2D shows that there is LV dimension and second wall motion is normal. there is no pericardial effusion present. All the chambers are normal in dimension. All the valves are normal in thickness and motion in diastole and systole. The mitral valve diastolic function is suggestive of grade I diastolic dysfunction. There is mild left ventricular hypertrophy present. CONCLUSION: 1. Technically very difficult echocardiogram. 2. LV dimension and second wall motion are normal with ejection fraction about 60%-65% range. 3. Mild left ventricular hypertrophy present with grade I diastolic dysfunction. 4. Mild aortic regurgitation. At present I doubt any hemodynamic significance. There is calcification of the aortic valve with good systolic function without aortic stenosis. 5. Otherwise normal study for the age. JOB# [id number] [facility]
--- NOTE | 2016-08-15 21:52 | Discharge Summary ---
DISCHARGE DIAGNOSES: 1. Acute kidney injury. 2. Diabetes mellitus. 3. Bilateral lower extremity peripheral vascular disease. 4. Hypertension. 5. Debility. 6. Generalized weakness. 7. Abdominal pain, resolved. 8. Nausea and vomiting, resolved. 9. Elevated troponin levels. HOSPITAL COURSE: The patient is a 66-year-old male who was transferred from [facility]. The patient admitted with diagnosis of acute injury, diabetes mellitus, hypertension, weakness, abdominal pain, nausea, vomiting, diarrhea and elevated troponin levels. The patient admitted to telemetry unit. CONSULTATION OBTAINED: Cardiology consultation obtained from Dr. Marcelo De Leon. Nephrology consultation obtained from Dr. Bui. The patient has chronic kidney disease secondary to diabetic nephropathy. The patient ordered for renal ultrasound. The patient was placed on IV fluids. The patient responded well to IV fluids. The patient had ultrasound done of bilateral lower extremity arterial, which showed [id number] diffuse bilateral changes. The patient had bilateral lower extremity venous ultrasound performed, which was negative for DVT. The patient also had an echocardiogram done which showed normal ejection fraction of 65%. Mild left ventricular hypertrophy present with grade I diastolic dysfunction and mild aortic regurgitation, otherwise normal study for age. After improvement of the patient's kidney function, the patient was discharged home. [facility]# [id number] BIG[facility]
== END 2016-07-30 13:59 | DRG 469 ==
LOC: TELE 22:00
PROVIDERS: ADMIT Preventive Medicine Preventive Medicine/Occupational Environmental Medicine; ATTEND Preventive Medicine Preventive Medicine/Occupational Environmental Medicine
DX: N17.9 Acute kidney failure, unspecified (principal); E11.49 Type 2 diabetes mellitus with other diabetic neurological complication; E11.51 Type 2 diabetes mellitus with diabetic peripheral angiopathy without gangrene; E44.0 Moderate protein-calorie malnutrition; E11.65 Type 2 diabetes mellitus with hyperglycemia; I12.9 Hypertensive chronic kidney disease with stage 1 through stage 4 chronic kidney disease, or unspecified chronic kidney disease; N18.9 Chronic kidney disease, unspecified; D64.9 Anemia, unspecified; R10.9 Unspecified abdominal pain; R11.2 Nausea with vomiting, unspecified; R19.7 Diarrhea, unspecified; D63.8 Anemia in other chronic diseases classified elsewhere; E88.09 Other disorders of plasma-protein metabolism, not elsewhere classified; Z79.4 Long term (current) use of insulin; Z91.81 History of falling
CPT/HCPCS: 36415-UA; 71010-TC; 76770-TC; 80048-TC; 80053-TC; 80061-TC; 81001-TC; 81003-TC; 82105-90; 82150-TC; 82306-90; 82550-TC; 82570-TC; 82607-90; 82948-90; 83036-90; 83690-TC; 83735-TC; 84100-TC; 84156-TC; 84165-90; 84300-TC; 84439-90; 84484-TC; 84550-TC; 85025-TC; 85652-TC; 86141-TC; 87075-90; 87086-90; 87205-90; 90799; 93005; 93925-TC; 93970-TC-50; 97530; J1815; J2405; J3475; J7030; J7070; Q0162; X3904